=== PATIENT | male | born 1950 | race Caucasian/White ===

== ENCOUNTER → 2021-01-20 | Outpatient (CLI) | payer MEDICARE ==
[2021-01-19 10:10] VITALS: BP 129/69
[2021-01-20] VITALS (14 sets, daily range): BP systolic 122–157; BP diastolic 41–92
[~2021-01-20] MED LIST: FISH OIL 1,0001 EAC9 PO; IRON325 M1 PO; NORCO 10-325 T1 EACH PO; PEPCID20 MG PO; SENNA8.6 MG PO; VITAMIN D3125 MC1 PO; VITAMIN E400 UNIT PO; XARELTO10 MG PO; ZINC30 MG PO
--- NOTE | 2021-01-23 14:00 | CARD ---
[address] [address] CARDIAC CATH REPORT Name: MARLINE HERRERA Room: [facility]#: [id number] Admission: 01/20/21 Attend Phys: Maria Esther Phelan MD, Discharge: Date of : 50 Report #: [id number] THIS REPORT FOR: cc: Lore Ramirez Linda J. DO Liston, Michael J. MD [facility] ~ cc: Lore Ramirez DO, Douglas F. Biggs, MD [facility] DATE OF SERVICE: 01/20/2021 PROCEDURE: Tilt table test. INDICATION: Syncope. DESCRIPTION OF PROCEDURE: After informed consent was obtained, the patient was brought to the cardiac holding area. Orthostatic blood pressures were checked and were unremarkable. The patient was then placed upon the tilt table test and tilted to the head upright position. Initial blood pressure was 129/69 mmHg with a pulse rate of 65 beats per minute. The patient's heart rate and blood pressure remained stable for the initial 20 minutes face of the tilt table test. At this time, the patient was given a single sublingual nitroglycerin. Initial blood pressure at the time of administration of nitro was 153/85 mmHg with a heart rate of 73 beats per minute. The patient had transient elevation in heart rate to 115 beats per minute. There was no significant decline in blood pressure. The patient completed the tilt table without significant symptoms or syncope. IMPRESSION: 1. Syncope. 2. Tilt table test shows no indication of neurocardiogenic syncope. The patient exhibited normal physiologic response to pharmacologically induced hypotension. <ELECTRONICALLY SIGNED> By: Mykel Ta MD, FACC 01/23/21 1400 1406 [id number] Ta MD, FACC /nt
== END | disposition home or self-care (01) ==
LOC: M.CL 08:56
PROVIDERS: ATTEND Internal Medicine
DX: R55 Syncope and collapse (principal); Z98.890 Other specified postprocedural states; Z79.899 Other long term (current) drug therapy; Z88.2 Allergy status to sulfonamides

== ENCOUNTER → 2021-01-28 | Outpatient (CLI) | payer MEDICARE ==
--- NOTE | 2021-01-28 17:31 | CARDNUC ---
[place] [address] CARDIAC NUCLEAR IMAGING REPORT Name: MARLINE HERRERA Room: [facility]#: [id number] Admission: 01/28/21 Attend Phys: Maria Esther Phelan, Discharge: Date of : 50 Date of Service: 01/28/21 1731 Report #: [id number] THIS REPORT FOR: cc: Lore Ramirez Linda J. DO Liston, Michael J. MD [facility] ~ APPROVED REPORT Study performed: 01/28/2021 08:58:36 Exam: Nuclear Stress Test Indication: Syncope Patient Location: Out-Patient Ht: 6 ft 0 in Wt: 214 lbs BSA: 2.19 m2 BMI: 29.02 Medical History Medical History: Arrhythmia braycardi, Hyperlipidemia Medications: asa Allergies: sulfa Cardiac Risk Factors: Age, Hyperlipidemia Exercise History: Physically active Stress Test Details Stress Test: Exercise stress testing was performed using a Tremaine protocol. HR Resting HR: 54 bpm Max Heart Rate (APMHR): 150 bpm Max HR Achieved: 136 bpm Target HR (85% APMHR): 127 bpm % of APMHR: 90 Recovery HR: 67 bpm BP Resting BP: 131/76 mmHg Max BP: 185/73 mmHg ECG Resting ECG: Sinus Rhythm Stress ECG: Sinus Tachycardia ST Change: None Arrhythmia: None Recovery ECG: Sinus Rhythm Recovery ST Change: [place] [address] CARDIAC NUCLEAR IMAGING REPORT Name: MARLINE HERRERA Room: [facility]#: [id number] Admission: 01/28/21 Attend Phys: Maria Esther Phelan, Discharge: Date of : 50 Date of Service: 01/28/21 1731 Report #: [id number] Recovery Arrhythmia: None Clinical Reason for Termination: Maximal effort The patient tolerated standard Tremaine protocol exercise without significant cardiac symptoms. The patient exhibited limited exercise tolerance. Stress ECG Conclusion Baseline twelve-lead EKG shows sinus rhythm without significant ST segment or T wave abnormality. EKGs obtained during and post exercise stress show sinus rhythm and sinus tachycardia with no significant ST segment or T wave changes when compared to baseline. There were no stress-induced arrhythmias. NM EXAM: Myocardial Perfusion REST/STRESS Resting Data Rest SPECT myocardial perfusion imaging was performed in supine position 30 minutes following the intravenous injection of 10.5 mCi of Tc-99m Sestamibi. Time of rest injection: 0755 The images were gated to evaluate regional wall motion and calculate left ventricular ejection fraction. Administration Route: IV Exercise Stress At peak stress, the patient was injected intravenously with 34.8mCi of Tc-99m Sestamibi. Time of stress injection: 09:10 Administration Route: IV Heart Rate at time of stress injection: 136 bpm. Patient continued to exercise for 1 minute(s). Gated Stress SPECT was performed 30 minutes after stress injection. Prone imaging was performed. Study Quality Study: Good Artifact: Mild Diaphragmatic artifact Study Data At rest, the left ventricular ejection fraction was 59%.. Post stress, the left ventricular ejection was 71%.. TID = 0.93. [place] [address] CARDIAC NUCLEAR IMAGING REPORT Name: JAVIERMARLINE De Room: [facility]#: [id number] Admission: 01/28/21 Attend Phys: Maria Esther Phelan, Discharge: Date of : 50 Date of Service: 01/28/21 1731 Report #: [id number] Perfusion Perfusion images obtained in the supine position at rest and post exercise stress show photopenia the inferior wall consistent with diaphragmatic attenuation artifact. Post-rest prone imaging shows no defect to suggest infarct or ischemia. Wall Motion Normal left ventricular wall motion. Nuclear Conclusion ECG Findings: negative for ischemia Clinical Findings: negative for ischemia Nuclear Findings: negative for ischemia Exercise Capacity: Limited Left Ventricular Function: normal Risk Study: low Perfusion images show no defect to suggest infarct or ischemia. Left ventricular systolic function appears normal on gated studies. This is a low risk study <Conclusion> Baseline twelve-lead EKG shows sinus rhythm without significant ST segment or T wave abnormality. EKGs obtained during and post exercise stress show sinus rhythm and sinus tachycardia with no significant ST segment or T wave changes when compared to baseline. There were no stress-induced arrhythmias. <ELECTRONICALLY SIGNED> By: Mykel Ta MD, FACC 01/28/211730 30 30 Mykel Ta MD, FACC /INF
== END ==
LOC: M.NUC 07:33
PROVIDERS: ATTEND Internal Medicine
DX: R55 Syncope and collapse (principal); R00.1 Bradycardia, unspecified